=== PATIENT | male | born 1960 | race Caucasian/White ===

== ENCOUNTER 2016-11-01 01:00 | Emergency (ER) | payer OTHER ==
[~2016-11-01 01:00] MED LIST: ALTACE2.5 MG PO; ASPIRIN81 M2 PO; PRILOSEC20 MG PO; TOPROL XL 50 MG50 MG PO
== END 2016-11-01 02:26 | disposition home or self-care (01) ==
LOC: CED 01:00
DX: T15.02XA Foreign body in cornea, left eye, initial encounter (principal); I10 Essential (primary) hypertension; X58.XXXA Exposure to other specified factors, initial encounter; Y92.9 Unspecified place or not applicable
CPT/HCPCS: 65220; 99283